=== PATIENT | female | born 1960 | race Caucasian/White ===

== ENCOUNTER 2024-05-14 21:37 | Emergency (ER) | payer MEDICARE, OTHER, SELFPAY ==
[2024-05-14 21:45] VITALS: BP 191/103
[2024-05-14 22:04] LABS: % Basophils 0.6 % (0-2); % Eosinophils 0.9 % (0-6); % Immature Granulocytes 0.3 % (0-0.5); % Lymphocytes 41.4 % (20.5-51.1); % Monocytes 6.5 % (1.7-9.3); % Neutrophils 50.3 % (42.2-75.2); Absolute Eosinophils 0.1 10^3/uL (0-0.7); Absolute Lymphocytes 2.8 10^3/uL (1.2-3.4); Absolute Monocytes 0.4 10^3/uL (0.1-0.6); Absolute Neutrophils 3.4 10^3/uL (1.4-6.5); Hematocrit 39.6 % (37.0-47.0); Hemoglobin 13.6 g/dL (12.0-16.0); Mean Corp Hgb Conc. 34.3 g/dL (33.0-37.0); Mean Corpuscular Hgb 30.5 pg (27.0-31.0); Mean Corpuscular Volume 88.8 fL (81.0-99.0); Mean Platelet Volume 9.1 fL (7.4-10.4); Nucleated Red Blood Cells % 0 %; Platelet Count 213 10^3/uL (130-400); Red Blood Cell Count 4.46 10^6/uL (4.20-5.40); Red Cell Dist. Width 11.7 % (11.5-14.5); White Blood Cell Count 6.7 10^3/uL (4.8-10.8)
[2024-05-14 22:24] LABS: Troponin I 0.012 ng/ml
[2024-05-14 22:25] LABS: ALT (SGPT) 17 U/L (0-35); AST (SGOT) 25 U/L (14-36); Albumin 4.3 g/dl (3.5-5.0); Alkaline Phosphatase 80 U/L (38-126); Blood Urea Nitrogen 19 mg/dl (7-17); Calcium 9.4 mg/dl (8.4-10.2); Carbon Dioxide 27 mmol/L (22-30); Chloride 100 mmol/L (98-107); Glucose 125 mg/dl (70-99); Lipase 111 U/L (23-300); Sodium 137 mmol/L (135-145); Total Bilirubin 0.8 mg/dl (0.2-1.3); Total Protein 6.9 g/dl (6.3-8.2); eGFR > 60.00
[2024-05-14 23:05] VITALS: BP 148/91; BMI 39.0
--- NOTE | 2024-05-14 23:05 | ED.GENMED ---
History of Present Illness
General
Chief Complaint: Chest Pain
Source: patient
Exam Limitations: none
Time Seen by Provider: 05/14/24 22:52
History of Present Illness
History of Present Illness:
This is a 64 year old female that comes in with c/o heart burn. States that this has had her anxious. States that this has been on and off for a week but was worse tonight. States that it is not related to eating though tonight it started after
dinner. States that she feels better now. States that she has had a headache for 9 years. Denies any fever, chills, SOB, abd pain, nausea, vomiting, diarrhea, dizziness, urinary burning.
Past History
Past History
ED Past Medical History: Other (Insomnia, )
ED Past Surgical History: (X 3), Gynecological (D&C) and Orthopedic (Right knee ACL and Meniscus repair)
Social History
Tobacco: Non-smoker
Alcohol: None
Personal:
Living: with family
Review of Systems
Review of Systems
All Other Systems: ROS reviewed and negative except as documented in HPI and ROS
Constitutional: Reports no symptoms; Denies fever or chills
EENT: Reports no symptoms
Respiratory: Reports no symptoms; Denies cough or trouble breathing
Cardiac: Reports chest pain
ABD/GI: Reports no symptoms; Denies abdominal pain, nausea, vomiting or diarrhea
: Reports no symptoms; Denies dysuria, frequency or urgency
Musculoskeletal: Reports no symptoms
Skin: Reports no symptoms
Neurological: Reports headache (for 9 years); Denies dizzy
Psychiatric: Reports no symptoms
Phy Exam
General Physical Exam
General Presentation: well appearing and no apparent distress
General age: appears stated age
General Skin: warm and dry
General Habitus: normal
General Mental: alert
General Hydration: appears well hydrated
ENT Exam
ENT Exam: TM's normal, pharynx normal and neck supple
Eye Exam
Eye Exam: EOMI
Cardiovascular Exam
Cardiovascular Exam: regular rate/rhythm, no edema, no murmur and normal peripheral pulses
Pulmonary Exam
Pulmonary Exam: lungs clear, no respiratory distress, no rales, chest non tender, no crackles, no rhonchi, no wheezing and no cough
Gastrointestinal Exam
Gastrointestinal Exam: normal bowel sounds, non tender, soft, no organomegaly, no pulsatile mass and non distended
Musculoskeletal Exam
Musculoskeletal Exam: full ROM and no edema
Skin Exam
Skin Exam: normal color, warm/dry, no rash and no petechia
Psychiatric Exam
Psychiatric Exam: normal mood/affect
Scores
Heart Score for Chest Pain Patients
STEMI patient?: No
History: Slightly or Non-Suspicious
ECG: Normal
Age: >/= 65 years
Risk Factors: No Risk Factors
Troponin: </= Normal Limit
Heart Score for Chest Pain Patients: 2
Heart Score Risk: 2.5% MACE over next 6 weeks
Course
Orders/Labs/Results
Orders:
Orders
05/14/24 21:38
Electrocardiogram (*1) Urgent
Reason for Study: Chest Pain
EKG- Treatment ONCE
05/14/24 21:55
Complete Blood Count/With Diff Urgent
Comprehensive Metabolic Panel Urgent
Lipase Urgent
Troponin I Urgent
05/14/24 23:05
Pantoprazole [Protonix IV] 40 mg IV NOW STA
Sucralfate Suspension [Carafate Suspension] 1 gm PO NOW STA
CR Chest - 2 Views Urgent
Comment:
Reason For Exam: Chest pain
05/14/24 23:15
Pantoprazole [Protonix] 40 mg PO NOW STA
05/14/24 23:25
Troponin I Urgent
05/15/24 00:29
CT Chest Angio W/wo Iv Contras Urgent
Comment:
Reason For Exam: ABNORMAL CHEST X-RAY. cHEST PAIN
Abnormal Lab Results
05/14/24
21:55
BUN 19 H mg/dl
(7-17)
Glucose 125 H mg/dl
(70-99)
05/14/24 21:55
05/14/24 21:55
Slight Dehydration. hyperglycemia. Troponin <0.012, Lipase normal at 111
Second Troponin <0.012
Vital Signs
Initial and Last Documented VS:
Initial Vital Signs
Temp Pulse Resp BP Pulse Ox
98.1 F 57 16 191/103 99
05/14/24 21:45 05/14/24 21:45 05/14/24 21:45 05/14/24 21:45 05/14/24 21:45
Last Documented Vital Signs
Temp Pulse Resp BP Pulse Ox
98.1 F 57 16 191/103 98
05/14/24 21:45 05/14/24 21:45 05/14/24 21:45 05/14/24 21:45 05/14/24 23:07
MDM/Problems Addressed
Differential Diagnosis Includes:
GERD, Coronary syndrome
MDM/Problems Addressed:
This is a 64 year old female that comes in with c/o heart burn. States that this has been on and off for a week but tonight her symptoms seemed worse and she got anxious.
will check labs and medicate for reflux.
Had been into see patient earlier and explained that her Chest x-ray was concerned for possible dissection. Would get CT of the chest. Back into see patient and explained that the CT shows the ascending aorta is enlarged but there is no dissection.
Patient states that she does feel better after the medication. Explained that this may be GERD. Will place patient on Protonix and Carafate for the next 10 days. Patient to follow up with the family doctor. return with any concerns.
Chronic conditions affecting care:
NA
Acute Exacerbation and/or Progression of Chronic Illness:
NA
*Radiology
Radiology exam reviewed: preliminary read by ED provider (Chest- Concern for dissection. Will get CTA chest) and radiology read reviewed (CTA chest-Adequate technical study. Enlarged ascending aorta measuring up to 4.2cm. NO evidence of dissection.
No central pulmonary embolism.Clear lungs. Incidentals:NO acute osseous abnormality. No acute abnormality within the visualized abdomen. NO thoracic lymphadenopathy or suspicious lymph node)
*Pulse Oximetry
Patient hypoxic: no
*EKG
Interpreted by ED Provider?: Yes
Heart Rate: 66
Rate: normal
Rhythm: sinus and PAC's
[place]: left axis deviation
Interval: normal interval
QRS Pattern: normal QRS
Ischemia: no ischemia
*Branch Office Administrator Interpretation
Rate: normal
Heart Rate: 65
Rhythm: sinus
*Critical Care Note
Total Time (30-74mins, 75-104mins- exclusive of procedures): Not Applicable
ED Attending Note
-
Portions of this chart may have been created with voice recognition software.� Occasional wrong word or��sound alike� substitutions may have occurred due to the inherent limitations of voice recognition software.
Discharge Plan
Departure
Patient Disposition: Home (Routine Discharge)
Date of Disposition: 05/15/24
Time of Disposition: 01:54
Patient with high blood pressure during this ER visit?: Yes
Condition: Good
Covid-19: Not Applicable
Discharge Problem:
Chest pain due to GERD
Instructions: Acid Reflux and GERD in Adults (DC), Chest Pain PCP Follow Up, BLOOD PRESSURE
Prescriptions:
New
pantoprazole [Protonix] 40 mg tablet,delayed release (DR/EC)
40 mg PO DAILY Qty: 14 0RF
sucralfate [Carafate] 1 gram tablet
1 g PO ACHS Qty: 40 0RF
Rx Instructions:
Dissolve 2tsp of water and drink. 30min-1hour before meals and HS
Referrals:
Dacier,Preeti M., MD [Family Provider] - Follow up in 2-3 days
Activity Restrictions/Additional Instructions:
As discussed, your blood work shows very slight Dehydration. Please increase your water intake to 8-8oz glasses daily. Your ECG and both Troponin are normal. Your CT of the chest shows that the ascending aorta is enlarged but there is no aneurysm.
This burning is most likely due to reflux. You have had 2 prescription sent to your Pharmacy. The Protonix is once daily. The Carafate is 30 min to 1 hour before meals and again at Bedtime. Please dissolve in 2 tsp of water and drink. Follow up with
the family doctor in the next 2-3 days for recheck. IF YOU HAVE INCREASED OR CHANGING CHEST DISCOMFORT OR YOU HAVE ANY OTHER CONCERNS PLEASE RETURN TO THE EMERGENCY ROOM.
Interventions
Interventions:
*Risk Screen - Suicide Last Done: 05/14/24 21:45
*General Assessment Last Done: 05/14/24 21:45
*Neglect/Abuse Screening Last Done: 05/14/24 21:45
ED- Fall Risk Assessment Last Done: 05/14/24 23:07
*ED COVID-19 Vaccine History Last Done: 05/14/24 23:07
ED- Cardiac Assessment Last Done: 05/14/24 23:07
Discharge Date and Time
Print Language: [email or web address]
[2024-05-14] MEDS: PROTONIX 40 MG PO (23:19)
[2024-05-14] MEDS: CARAFATE SUSPENSION 1 GM PO (23:19)
[2024-05-14 23:56] LABS: Troponin I < 0.012 ng/ml
[2024-05-15 01:55] VITALS: BP 160/92
== END 2024-05-15 02:25 | disposition home or self-care (01) ==
LOC: EMR 21:37
PROVIDERS: Clinical Nurse Specialist Family Health; Emergency Medicine; EMERGENCY PHYSICIAN Student in an Organized Health Care Education/Training Program; FAMILY PHYSICIAN Family Medicine
DX: K21.9 Gastro-esophageal reflux disease without esophagitis (principal)
CPT/HCPCS: 99285; 71046; 71275; 80053; 83690; 84484; 85025; 93005; Q9967

== ENCOUNTER 2025-04-16 06:30 | Day surgery (SDC) | payer MEDICARE, OTHER, SELFPAY | END 2025-04-16 09:41 | disposition home or self-care (01) | LOC: GI 06:30 | PROVIDERS: ATTENDING PHYSICIAN Internal Medicine Gastroenterology | DX: Z12.11 Encounter for screening for malignant neoplasm of colon (principal); D12.0 Benign neoplasm of cecum; D12.3 Benign neoplasm of transverse colon; R19.4 Change in bowel habit; K64.9 Unspecified hemorrhoids | CPT/HCPCS: 45385; 45380; 88305 ==

== ENCOUNTER 2025-07-09 06:11 | Day surgery (SDC) | payer MEDICARE, OTHER, SELFPAY ==
[2025-07-09 08:38] VITALS: BMI 36.3
[2025-07-09 08:48] VITALS: BP 141/76
[2025-07-09 11:25] VITALS: BP 110/57
[2025-07-09 11:30] VITALS: BP 112/79
[2025-07-09 11:45] VITALS: BP 145/78
== END 2025-07-09 12:18 | disposition home or self-care (01) ==
LOC: GI 06:11
PROVIDERS: ATTENDING PHYSICIAN Internal Medicine Gastroenterology
DX: D12.0 Benign neoplasm of cecum (principal); K64.0 First degree hemorrhoids
CPT/HCPCS: 45390; 88305